=== PATIENT | female | born 2000 | race Two or more races ===

== ENCOUNTER 2021-03-01 12:25 | Emergency (ER) | payer OTHER ==
[~2021-03-01] VITALS: Ht 165.1 cm; Wt 79.4 kg
--- NOTE | 2021-03-01 12:35 | NUR ---
TO ER BED 9, C/O HIVES, THROAT DISCOMFORT S/P EATING A PROTEIN COOKIE W/ NUTS. AAOX3, CONNECTED TO MONITOR
[2021-03-01] MEDS ORDERED: diphenhydrAMINE HCL 50 MG/ML VIAL ONE (12:44)
[2021-03-01] MEDS ORDERED: diphenhydrAMINE HCL 50 MG/ML VIAL IV ONE (13:00)
[2021-03-01] MEDS ORDERED: DIPH-530 PO (13:30)
[2021-03-01] MEDS ORDERED: DIPH50CA4 PO (13:35)
[2021-03-01] MEDS ORDERED: DIPH25TA22 PO (13:35)
[2021-03-01 14:03] VITALS: BP 110/81
--- NOTE | 2021-03-01 14:03 | NUR ---
Patient discharged to home in stable condition. Written and verbal after care instructions given. Patient verbalizes understanding of instruction.IV removed. Catheter intact and site benign. Pressure and 4x4 applied to site. No bleeding noted.
== END 2021-03-01 14:03 | disposition home or self-care (01) ==
LOC: ER 12:28
DX: T78.1XXA Other adverse food reactions, not elsewhere classified, initial encounter (principal); L50.9 Urticaria, unspecified; X58.XXXA Exposure to other specified factors, initial encounter
CPT/HCPCS: 96374; 99283; J1200